=== PATIENT | female | born 1975 | race Caucasian/White ===

== ENCOUNTER 2017-03-16 11:57 | Emergency (ER) | payer OTHER ==
[~2017-03-16] VITALS: Ht 162.6 cm; Wt 73.5 kg
[2017-03-16 12:25] VITALS: BP 106/73
--- NOTE | 2017-03-16 12:28 | NUR ---
Patient ambulated to bed 03
--- NOTE | 2017-03-16 12:42 | NUR ---
41F BIB SELF C/O LEFT SHOULDER PAIN, SHARP, NON-RADIATING, / X 3 DAYS; PT DENIES TRAUMA OR INJURY TO SITE AT THIS TIME; NO OBVIOUS DEFORMITIES NOTED TO LEFT SHOULDER AT THIS TIME; LEFT CAP REFILL < 3 SECONDS, LEFT RADIAL PULSE PALPABLE, NO LOSS OF SENSATION TO LEFT ARM AT THIS TIME; PT A&OX4, PERRL, BL LUNG SOUNDS CLEAR, RR EVEN/UNLABORED, SKIN IS WARM/DRY/INTACT; PT DENIES N/V/D AT THIS TIME; STEADY GAIT; PT RESTING IN BED W/ HOB ELEVATED AND IN LOWEST POSITION; POSITIONED FOR COMFORT; ER MD MADE AWARE OF STATUS. WILL CONTINUE TO MONITOR.
--- NOTE | 2017-03-16 13:14 | NUR ---
XRAY AT BEDSIDE.
--- NOTE | 2017-03-16 13:48 | NUR ---
Dr. Mast evaluating patient at bedside.
[2017-03-16 14:01] VITALS: BP 119/66
--- NOTE | 2017-03-16 14:01 | NUR ---
Patient discharged with v/s stable. Written and verbal after care instructions given and explained. Patient alert, oriented and verbalized understanding of instructions. Ambulatory with steady gait. All questions addressed prior to discharge. ID band removed. Patient advised to follow up with PMD. Rx of MOTRIN 800MG TAB given. Patient educated on indication of medication including possible reaction and side effects. Opportunity to ask questions provided and answered.
== END 2017-03-16 14:01 | disposition home or self-care (01) ==
LOC: MED 11:57
DX: M25.512 Pain in left shoulder (principal)
CPT/HCPCS: 73030; 99284; Q0092